=== PATIENT | female | born 1985 | race Caucasian/White ===

== ENCOUNTER 2023-01-31 06:35 | Inpatient (IN) | payer BC ==
[2023-01-31] MEDS ORDERED: CARBOPROST TROMETHAMINE 250 MCG/ML 1 ML AMP IM PRN (06:50)
[2023-01-31] MEDS ORDERED: TERBUTALINE 1 MG/ML VIAL SQ PRN (06:50)
[2023-01-31] MEDS ORDERED: OXYTOCIN 10 UNIT/ML 1 ML VIAL IM PRN (06:50)
[2023-01-31] MEDS ORDERED: METHYLERGONOVINE 0.2 MG/ML 1 ML AMP IM PRN (06:50)
[2023-01-31] MEDS ORDERED: miSOPROStoL 200 MCG TAB PO PRN (06:50)
[2023-01-31] MEDS ORDERED: LIDOCAINE 0.5% (PF) 5 MG/ML (50 ML SDV) SQ PRN (06:50)
[2023-01-31] MEDS ORDERED: TRANEXAMIC 1,000 MG/100ML-NACL 1,000 MG in EMPTY BAG 1 BAG IV PRN (06:50)
[2023-01-31] MEDS ORDERED: LACTATED RINGERS 1,000 ML IV SCH ×2 (07:00)
[2023-01-31] MEDS ORDERED: OXYTOCIN 30 UNITS/500 ML NS 30 UNIT in SALINE 1 500ML.BAG IV SCH (07:00)
[2023-01-31 07:15] LABS: Basophils % (A) 1 %; Eosinophils # (A) 0.1 k/uL (0-0.7); Eosinophils % (A) 1 %; HCT 36.8 % (34.0-46.0); HGB 12.6 gm/dL (11.4-16.0); Lymphocytes # (A) 1.5 k/uL (1.0-4.8); Lymphocytes % (A) 19 %; MCH 29.9 pg (25.0-35.0); MCHC 34.2 g/dL (31.0-37.0); MCV 87.4 fL (80.0-100.0); Mean Platelet Volume 9.1; Monocytes # (A) 0.4 k/uL (0-1.0); Monocytes % (A) 6 %; Neutrophils # (A) 5.6 k/uL (1.3-7.7); Neutrophils % (A) 72 %; Platelet Count 199 k/uL (150-450); RBC 4.21 m/uL (3.80-5.40); RDW 13.6 % (11.5-15.5); WBC 7.8 k/uL (3.8-10.6)
--- NOTE | 2023-01-31 08:09 | P.HPOB ---
History of Present Illness H&P Date: 01/31/23 Chief Complaint: Induction of labor Ms. Moreno is a 37 year old at 40 weeks and 0 days with EDC of 01/31/2023 (by LMP consistent with 9 week US) who presents for induction of labor. The has been complicated by advanced maternal age. At 32 weeks the fetus was measuring in the 40%ile for growth. Obstetric history: 1 FTVD labs: blood type AB positive, antibody negative, rubella immune, VDRL non-reactive, HBsAg negative, HIV negative, HCV Ab negative, gonorrhea negative, chlamydia negative, 1 hour GTT wnl, GBS negative. s/p TDap administered . Past medical history: asthma, anxiety and depression Past Medical History Past Medical History: Asthma History of Any Multi-Drug Resistant Organisms: None Reported Past Surgical History: Cholecystectomy, Hernia Repair Additional Past Surgical History / Comment(s): left wrist tendon repair Past Anesthesia/Blood Transfusion Reactions: No Reported Reaction Past Psychological History: Anxiety, Depression Smoking Status: Never smoker Past Alcohol Use History: None Reported Past Drug Use History: None Reported - Past Family History Father Family Medical History: Cancer Mother Family Medical History: Cancer Medications and Allergies Home Medications Medication Instructions Recorded Confirmed Type Vit No.179/Iron/Folic 1 each PO DAILY 01/31/23 01/31/23 History [ Tablet] Allergies Allergy/AdvReac Type Severity Reaction Status Date / Time No Known Allergies Allergy Verified 01/31/23 06:48 Exam Vital Signs Temp Pulse Resp BP Pulse Ox 01/31/23 07:31 97.3 F L 80 16 120/80 97 Intake and Output 01/30/23 01/31/23 01/31/23 22:59 06:59 14:59 Other: Weight 108.862 kg 108.862 kg Focused physical exam is performed. This is a healthy-appearing in no apparent distress. Breathing is non-labored. Abdomen is gravid and non-tender. Cervical exam is 3 cm, 80 effacement, -2 station. AROM is undertaken with clear fluid noted. Extremities non-tender and non-edematous. heart tones are Category I and tocometer is graphing irregular contractions at this time. Results Result Diagrams: 01/31/23 06:56 Assessment and Plan Assessment: 37 year old at 40 weeks and 0 days presenting for induction of labor Plan: Admit, mIVF, CLD, oxytocin per protocol, epidural prn. Continuous EFM and tocometer, close monitoring of patient.
[2023-01-31] MEDS ORDERED: NALBUPHINE 10 MG/ML (10 ML MDV) IV PRN (10:43)
--- NOTE | 2023-01-31 12:39 | P.PROBDLV ---
Vaginal Delivery Note - . Vaginal Delivery Note: DATE OF SERVICE: 01/31/2023 PROCEDURE: Normal Vaginal Delivery ATTENDING: Dr. Diana Quigley MD ESTIMATED BLOOD LOSS: 200 mL FINDINGS: VMI, Apgars 8/9. Weight 8 pounds and 9 ounces (3890 grams) PROCEDURE: Ms. Moreno is a 37 year old at 40 weeks presenting to labor and delivery for induction of labor. The has been complicated by advanced maternal age and maternal anxiety and depression. For further details, please review the admitting H&P. Pitocin was titrated per hospital protocol. AROM was undertaken at 800 revealing clear fluid. The patient was completely dilated at 1143. A viable male was delivered at 1221. The was plac ed on the maternal abdomen and bulb suctioned. The infant was noted to be spontaneously crying. Cord was clamped and cut after a 30-second delay. The was handed off to the pediatric team. Placenta was delivered manually after umbilical cord avulsion at 1228. IM Oxytocin was given to facilitate uterine tone. Uterine fundus was found to be firm and below the umbilicus upon fundal massage. Thorough examination of the cervix, vagina, periurethral area, and perineum revealed no lacerations. The patient is stable and allowed to begin the bonding process.
[2023-01-31] MEDS ORDERED: diphenhydrAMINE 50 MG CAP PO PRN (12:40)
[2023-01-31] MEDS ORDERED: diphenhydrAMINE 50 MG/ML 1 ML VIAL IVP PRN ×2 (12:40)
[2023-01-31] MEDS ORDERED: ZOLPIDEM 5 MG TAB PO PRN (12:40)
[2023-01-31] MEDS ORDERED: BENZOCAINE/MENTHOL SPRAY 1 GM/SPRAY AEROSOL TOPICAL PRN (12:40)
[2023-01-31] MEDS ORDERED: LANOLIN CREAM 5 GM TUBE TOPICAL PRN (12:40)
[2023-01-31] MEDS ORDERED: ACETAMINOPHEN TAB 325 MG TAB PO PRN (12:40)
[2023-01-31] MEDS ORDERED: diphenhydrAMINE 25 MG CAP PO PRN (12:40)
[2023-01-31] MEDS ORDERED: SIMETHICONE 80 MG CHEWABLE PO PRN (12:40)
[2023-01-31] MEDS ORDERED: HYDROCORTISONE 2.5% RECTAL CREAM 30 GM TUBE RECTAL PRN (12:40)
[2023-01-31] MEDS: IBUPROFEN 600 MG TAB PO PRN ×2 (13:40→20:04)
[2023-01-31] MEDS: SENNOSIDES-DOCUSATE SODIUM 1 EACH TAB PO SCH (20:04)
[2023-02-01 07:21] LABS: Basophils % (A) 1 %; Eosinophils # (A) 0.1 k/uL (0-0.7); Eosinophils % (A) 1 %; HCT 34.8 % (34.0-46.0); HGB 11.9 gm/dL (11.4-16.0); Lymphocytes # (A) 1.5 k/uL (1.0-4.8); Lymphocytes % (A) 18 %; MCH 30.3 pg (25.0-35.0); MCHC 34.2 g/dL (31.0-37.0); MCV 88.5 fL (80.0-100.0); Mean Platelet Volume 9.5; Monocytes # (A) 0.4 k/uL (0-1.0); Monocytes % (A) 5 %; Neutrophils # (A) 6.2 k/uL (1.3-7.7); Neutrophils % (A) 75 %; Platelet Count 187 k/uL (150-450); RBC 3.93 m/uL (3.80-5.40); RDW 13.5 % (11.5-15.5); WBC 8.3 k/uL (3.8-10.6)
--- NOTE | 2023-02-01 08:15 | P.PNOBGVD ---
Subjective - Subjective Principal diagnosis: s/p normal vaginal delivery Interval history: The patient is doing well this morning and had no acute events overnight. She has no complaints this morning. She reports moderate lochia, passing flatus, voiding without difficulty, ambulating, and eating/drinking without nausea or vomiting. She is breast-feeding her without difficulty. She denies chest pain, shortness of breathing, fevers, or chills overnight. She denies pain or swelling in the legs. Patient reports: Reports appetite normal, Reports voiding normally, Reports pain well controlled, Reports ambulating normally Richards: doing well, nursing well Objective - Latest Vital Signs Latest vital signs: Vital Signs Temp Pulse Resp BP Pulse Ox 02/01/23 07:56 98.3 F 70 16 130/78 100 02/01/23 04:00 97.7 F 72 17 113/71 98 02/01/23 00:00 98.4 F 68 17 121/71 100 01/31/23 20:00 97.7 F 85 18 144/87 97 01/31/23 15:22 98.3 F 66 16 129/62 01/31/23 14:32 82 17 142/82 01/31/23 13:45 73 16 148/76 01/31/23 13:30 81 16 141/67 01/31/23 13:15 83 17 137/67 01/31/23 13:00 87 16 130/70 01/31/23 12:45 98.1 F 90 16 126/72 Intake and Output 01/31/23 02/01/23 02/01/23 22:59 06:59 14:59 Output Total 190 Balance -190 Output: Output, Quantitative 190 Blood Loss Other: # Voids 1 - Exam Extremities: Present: normal Abdomen: Present: normal appearance, soft Uterus: Present: normal, firm Assessment and Plan Assessment: 37 year old now PPD#1 s/p normal vaginal delivery Plan: 1. . Patient meeting all milestones appropriately. 2. Viable male . Doing well at bedside, nursing well. Will perform circumcision, mother consented. Dispo: Anticipate discharge home tomorrow.
[2023-02-01] MEDS: SENNOSIDES-DOCUSATE SODIUM 1 EACH TAB PO SCH ×2 (08:16→20:39)
[2023-02-02] MEDS: IBUPROFEN 600 MG TAB PO PRN (01:19)
--- NOTE | 2023-02-02 08:30 | P.DS ---
Providers Date of admission: 01/31/23 06:35 Expected date of discharge: 02/02/23 Attending physician: Diana Quigley MD Primary care physician: Stated None Hospital Course: Ms. Moreno is a 37 year old PPD#2 s/p normal vaginal delivery after induction of labor at 40 weeks gestation. The patient is doing well this morning and had no acute events overnight. She has no complaints this morning. She reports minimal lochia, passing flatus, voiding without difficulty, ambulating, and eating/drinking without nausea or vomiting. doing well at bedside, s/p circumcision. She denies chest pain, shortness of breathing, fevers, or chills overnight. She denies pain or swelling in the legs. restrictions are reviewed with the patient including pelvic rest for 6 weeks. The patient is encouraged to call the office if she experiences any heavy bleeding, foul-smelling discharge, breast complaints, or any if she has any other concerns. She will follow up in the office with in 6 weeks for exam. All questions are answered. Assessment: 37 year old now PPD#2 s/p normal vaginal delivery Patient Condition at Discharge: Good Plan - Discharge Summary New Discharge Prescriptions: New Ibuprofen [Motrin] 600 mg PO Q6HR PRN #30 tab PRN Reason: Mild Pain (Scale 1 To 3) No Action Vit No.179/Iron/Folic [ Tablet] 1 each PO DAILY Discharge Medication List Vit No.179/Iron/Folic [ Tablet] 1 each PO DAILY 01/31/23 [Histo ry] Ibuprofen [Motrin] 600 mg PO Q6HR PRN #30 tab 02/02/23 [Rx] Follow up Appointment(s)/Referral(s): Diana Quigley MD [STAFF PHYSICIAN] - 6 Weeks Activity/Diet/Wound Care/Special Instructions: Instructions 1. Do not begin any exercise program for 3 weeks. 2. Do not resume sexual relations for 6 weeks or longer if uncomfortable. 3. You may take tub baths or showers at any time. 4. You may use tampons if desired after 6 weeks. 5. Keep any areas repaired with stitches clean and dry. 6. If you are not nursing, wear a good fitting, supportive bra during the day and limit fluid intake for at least 1 week to prevent breast engorgement. 7. Call the office, , within the next week to make appointment for your 6 week checkup if it has not already been made. 8. Report any of the following occurrences to the doctor promptly: a. Heavy, excessive bleeding b. Chills, fever c. Burning or frequency of urination d. Pain or redness and breasts if nursing e. Increasing pain or swelling of vulva (stitches). In addition to the above instructions, the following additional should be followed: 1. No heavy lifting or straining (exercising) until after 6 week checkup. 2. Keep abdominal incision clean and dry: You may wear a dressing if more comfortable. 3. Make office appointment for 2 weeks after delivery date. Discharge Disposition: HOME SELF-CARE
[2023-02-02 09:21] VITALS: BP 125/77; PULSE 89; RESP 20; TEMP 98.5
[2023-02-02] MEDS: SENNOSIDES-DOCUSATE SODIUM 1 EACH TAB PO SCH (09:45)
== END 2023-02-02 10:30 | disposition home or self-care (01) | DRG 807 ==
LOC: 4FBP 06:35
PROVIDERS: ADMIT Obstetrics & Gynecology; ATTEND Obstetrics & Gynecology
PROC: 10E0XZZ Delivery of Products of Conception, External Approach (ICD-10-PCS; principal; 2023-01-31)
PROC: 10907ZC Drainage of Amniotic Fluid, Therapeutic from Products of Conception, Via Natural or Artificial Opening (ICD-10-PCS; 2023-01-31)
PROC: 3E033VJ Introduction of Other Hormone into Peripheral Vein, Percutaneous Approach (ICD-10-PCS; 2023-01-31)
DX: O69.89X0 Labor and delivery complicated by other cord complications, not applicable or unspecified (principal); Z37.0 Single live birth; F32.A Depression, unspecified; F41.9 Anxiety disorder, unspecified; J45.909 Unspecified asthma, uncomplicated; O99.344 Other mental disorders complicating childbirth; O99.52 Diseases of the respiratory system complicating childbirth; Z3A.40 40 weeks gestation of pregnancy; Z87.19 Personal history of other diseases of the digestive system; Z90.49 Acquired absence of other specified parts of digestive tract
CPT/HCPCS: 85025; 86850; 86900; 86901

== ENCOUNTER → 2024-06-19 | Outpatient (CLI) | payer BC ==
--- NOTE | 2024-06-19 11:35 | XR ---
EXAMINATION TYPE: XR foot complete LT DATE OF EXAM: 06/19/2024 CLINICAL INDICATION: Female, 38 years old with history of [id number] LT FOOT PAIN, pain TECHNIQUE: Frontal, lateral, and oblique images of the left foot are obtained. COMPARISON: None FINDINGS: There is no acute fracture/dislocation evident in the left foot. The joint spaces in the left foot appear within normal limits. The overlying soft tissue appears unremarkable. IMPRESSION: Unremarkable study. [facility], , 06/19/2024 11:33 AM
== END | disposition home or self-care (01) ==
LOC: RADXRYALE 10:42
PROVIDERS: ATTEND Physician Assistant
DX: M79.672 Pain in left foot (principal)